=== PATIENT | female | born 1975 | race Caucasian/White ===

== ENCOUNTER 2018-04-18 17:29 | Emergency (ER) | payer MEDICAID ==
[2018-04-18] MEDS: KETOROLAC 60 MG INJ IM (18:46)
[2018-04-18] MEDS: ONDANSETRON (ODT) 4 MG TAB ODT (18:46)
[2018-04-18 18:58] LABS: URINE BLOOD (Dip) POC 2+ (NEGATIVE); URINE GLUCOSE (Dip) POC Negative (NEGATIVE); URINE KETONES (Dip) POC Negative (NEGATIVE); URINE LEUKOCYTE EST (Dip) POC 1+ (NEGATIVE); URINE NITRITE (Dip) POC Negative (NEGATIVE); URINE TOTAL PROTEIN POC Negative (NEGATIVE)
== END 2018-04-18 19:40 | disposition home or self-care (01) ==
LOC: FTE 17:29
DX: N39.0 Urinary tract infection, site not specified (principal); I10 Essential (primary) hypertension
CPT/HCPCS: 81003; 81025; 96372; 99284-25

== ENCOUNTER 2018-07-04 14:56 | Emergency (ER) | payer MEDICAID | END 2018-07-04 20:26 | disposition home or self-care (01) | LOC: FTE 20:26 | DX: S41.112A Laceration without foreign body of left upper arm, initial encounter (principal); I10 Essential (primary) hypertension; X58.XXXA Exposure to other specified factors, initial encounter; Y92.9 Unspecified place or not applicable | CPT/HCPCS: 99282; Z7502 ==

== ENCOUNTER → 2018-07-10 | Emergency (ER) | payer MEDICAID | END | disposition home or self-care (01) | LOC: FTE 13:55 | DX: Z48.02 Encounter for removal of sutures (principal); I10 Essential (primary) hypertension | CPT/HCPCS: 99282; Z7502 ==